=== PATIENT | female | born 1945 | race Caucasian/White ===

== ENCOUNTER → 2016-08-19 | Outpatient (CLI) | payer OTHER, MEDICARE | LOC: CIMAGING 14:55 | PROVIDERS: ATTEND Obstetrics & Gynecology | DX: R10.30 Lower abdominal pain, unspecified (principal); Z78.0 Asymptomatic menopausal state; Z90.710 Acquired absence of both cervix and uterus | CPT/HCPCS: 76856-PO ==

== ENCOUNTER → 2016-08-21 | Outpatient (CLI) | payer OTHER, MEDICARE | LOC: FIMAGING 11:02 | PROVIDERS: ATTEND Obstetrics & Gynecology | DX: Z12.31 Encounter for screening mammogram for malignant neoplasm of breast (principal) | CPT/HCPCS: G0202 ==

== ENCOUNTER → 2016-08-27 | Outpatient (CLI) | payer OTHER, MEDICARE | LOC: FIMAGING 12:40 | PROVIDERS: ATTEND Obstetrics & Gynecology | DX: R92.8 Other abnormal and inconclusive findings on diagnostic imaging of breast (principal) | CPT/HCPCS: 76641; G0204 ==

== ENCOUNTER → 2016-10-15 | Outpatient (CLI) | payer OTHER, MEDICARE | LOC: FIMAGING 18:50 | PROVIDERS: ATTEND Family Medicine | DX: G31.9 Degenerative disease of nervous system, unspecified (principal) ==

== ENCOUNTER → 2016-10-28 | Outpatient (CLI) | payer OTHER, MEDICARE | LOC: FCPNEURO 21:00 | PROVIDERS: ATTEND Student in an Organized Health Care Education/Training Program | DX: G47.33 Obstructive sleep apnea (adult) (pediatric) (principal) ==

== ENCOUNTER → 2016-11-06 | Outpatient (CLI) | payer OTHER, MEDICARE | LOC: FCPNEURO 21:30 | PROVIDERS: ATTEND Psychiatry & Neurology Sleep Medicine | DX: G47.33 Obstructive sleep apnea (adult) (pediatric) (principal) ==

== ENCOUNTER → 2016-12-22 | Outpatient (CLI) | payer OTHER, MEDICARE | LOC: FIMAGING 09:30 | PROVIDERS: ATTEND Nurse Practitioner | DX: M54.5 Low back pain (principal); M54.6 Pain in thoracic spine; M43.06 Spondylolysis, lumbar region; R93.7 Abnormal findings on diagnostic imaging of other parts of musculoskeletal system ==

== ENCOUNTER → 2017-01-15 | Outpatient (CLI) | payer OTHER, MEDICARE | LOC: CIMAGING 14:56 | DX: M43.16 Spondylolisthesis, lumbar region (principal); M51.36 Other intervertebral disc degeneration, lumbar region; M51.34 Other intervertebral disc degeneration, thoracic region; M48.56XA Collapsed vertebra, not elsewhere classified, lumbar region, initial encounter for fracture; M48.54XA Collapsed vertebra, not elsewhere classified, thoracic region, initial encounter for fracture | CPT/HCPCS: 72070-PO; 72100-PO ==

== ENCOUNTER → 2017-02-07 | Outpatient (CLI) | payer OTHER, MEDICARE | LOC: FIMAGING 13:04 | PROVIDERS: ATTEND Internal Medicine Rheumatology | DX: Z13.820 Encounter for screening for osteoporosis (principal); M81.0 Age-related osteoporosis without current pathological fracture ==

== ENCOUNTER 2017-08-22 19:15 | Observation (INO) | payer OTHER, MEDICARE ==
--- NOTE | 2017-08-22 19:50 | EDPHY ---
H & P Stated Complaint: "i wasn't making sense" was for less than 1 min. Time Seen by Provider: 08/22/17 19:27 HPI/ROS: CHIEF COMPLAINT: Confusion HISTORY OF PRESENT ILLNESS: The patient is a 72-year-old female who is brought to the emergency department by her friend who is concerned about her. Today while they were eating lunch the patient suddenly began rambling about a different topic. They do not described it as word salad. No slurred speech. She was able to find words but just simply began talking about unusual things. Her friend asked her what she was talking about and she was able to self- correct. The patient states that something similar happened to her couple of days ago also while she was on the phone. Her friend states that the episode today episode lasted about a minute or 2 and then the patient seemed better however afterwards she was starting to nod-off while eating. The patient does suffer from narcolepsy and obstructive sleep apnea. She takes Provigil during the day but has not taken it for the last few days. Patient also describes a tendency to occasionally gulp at the air like she is short of breath but she does not feel short of breath. No recent fevers or infections. No trauma. She is concerned about TIA. No headache, no paresthesias or weakness. No dizziness. She is now symptom free. REVIEW OF SYSTEMS: Constitutional: denies: chills, fever, recent illness, recent injury EENTM: denies: blurred vision, double vision, nose congestion Respiratory: denies: cough, shortness of breath Cardiac: denies: chest pain, irregular heart rate, lightheadedness, palpitations Gastrointestinal/Abdominal: denies: abdominal pain, diarrhea, nausea, vomiting, blood streaked stools Genitourinary: denies: dysuria, frequency, hematuria, pain Musculoskeletal: denies: joint pain, muscle pain Skin: denies: lesions, rash, jaundice, bruising Neurological: See HPI denies: headache, numbness, paresthesia, tingling, dizziness, weakness Hematologic/Lymphatic: denies: blood clots, easy bleeding, easy bruising Immunologic/allergic: denies: HIV/AIDS, transplant EXAM: GENERAL: Well-appearing, well-nourished and in no acute distress. HEAD: Atraumatic, normocephalic. EYES: Pupils equal round and reactive to light, extraocular movements intact, sclera anicteric, conjunctiva are normal. ENT: TMs normal, nares patent, oropharynx clear without exudates. Moist mucous membranes. NECK: Normal range of motion, supple without lymphadenopathy or JVD. LUNGS: Breath sounds clear to auscultation bilaterally and equal. No wheezes rales or rhonchi. HEART: Regular rate and rhythm without murmurs, rubs or gallops. ABDOMEN: Soft, nontender, normoactive bowel sounds. No guarding, no rebound. No masses appreciated. BACK: No CVA tenderness, no spinal tenderness, step-offs or deformities EXTREMITIES: Normal range of motion, no pitting or edema. No clubbing or cyanosis. NEUROLOGICAL: Cranial nerves II through XII grossly intact. Normal speech, normal gait. 5/5 strength, normal movement in all extremities, normal sensation PSYCH: Normal mood, normal affect. SKIN: Warm, dry, normal turgor, no visible rashes or lesions. Source: Patient - Personal History Current Tetanus/Diphtheria Vaccine: Unsure Current Tetanus Diphtheria and Acellular Pertussis (TDAP): Unsure - Medical/Surgical History Hx Asthma: Yes Hx Chronic Respiratory Disease: No Hx Diabetes: No Hx Cardiac Disease: No Hx Renal Disease: No Hx Cirrhosis: No Hx Alcoholism: No Hx HIV/AIDS: No Hx Splenectomy or Spleen Trauma: No Other PMH: chronic pain, DDD, HTN, MRI abnormal. osteoporosis. hypothyroid. fibromyalgia - Family History Significant Family History: No pertinent family hx - Social History Smoking Status: Never smoked Alcohol Use: None Constitutional: Initial Vital Signs Temperature (C) 36.9 C 08/22/17 19:18 Heart Rate 82 08/22/17 19:18 Respiratory Rate 16 08/22/17 19:18 Blood Pressure 159/109 H 08/22/17 19:18 O2 Sat (%) 95 08/22/17 19:18 O2 Delivery Mode Room Air Allergies/Adverse Reactions: Sulfa (Sulfonamide Antibiotics) Allergy (Severe, Verified 01/19/15 08:39) Anaphylaxis Home Medications: Medication Instructions Recorded Famotidine [Pepcid 20 MG (*)] 20 mg PO BIDMEAL PRN 08/22/17 Gabapentin [Neurontin 100 MG (*)] 200 mg PO DAILY 08/22/17 Naturethroid 97.5mg Tab 97.5 mg PO DAILY 08/22/17 Omeprazole 20 mg PO DAILY 08/22/17 Orphenadrine Citrate [Norflex 100 100 mg PO BID PRN 08/22/17 mg (*)] Tapentadol HCl [Nucynta 50 MG (*)] 50 mg PO Q6H PRN 08/22/17 Tapentadol HCl [Nucynta ER] 200 mg PO BID@,18 08/22/17 celeCOXIB [Celebrex (*)] 200 mg PO DAILY PRN 08/22/17 Acetaminophen [Tylenol 325mg (*)] 650 mg PO Q4HRS PRN tab 08/23/17 Aspirin [Aspirin 81mg (*)] 81 mg PO DAILY tab.chew 08/23/17 Atorvastatin Calcium [Lipitor 20 20 mg PO DAILY #30 tab 08/23/17 mg (*)] Difluprednate [Durezol] 1 drop RTEYE DAILY 08/23/17 Lifitegrast [Xiidra] 1 drop EACHEYE BID 08/23/17 Medical Decision Making ED Course/Re-evaluation: 8:30 p.m. I discussed the case with Dr. Paz who will admit to the medical service for what could be be crescendo like TIAs. Differential Diagnosis: Partial list of the Differential diagnosis considered include but were not limited to; TIA, electrolyte abnormality and although unlikely based on the history and physical exam, I also considered acute coronary disease, arrhythmia. - Data Points Laboratory Results: Laboratory Results 08/22/17 20:09 08/22/17 20:09 Medications Given: Discontinued Medications Aspirin (Aspirin) 81 mg PO DAILY [facility] Stop: 02/19/18 08:59 Last Admin: 08/23/17 09:19 Dose: 81 mg Gabapentin (Neurontin) 200 mg PO DAILY [facility] Stop: 02/19/18 08:59 Last Admin: 08/23/17 09:19 Dose: 200 mg Hydralazine HCl (Apresoline) 10 mg PO Q4H PRN PRN Reason: SBP Greater Than Stop: 02/18/18 23:44 Last Admin: 08/22/17 23:42 Dose: 10 mg Sodium Chloride (Ns) 1,000 mls @ 75 mls/hr IV CONT [facility] Stop: 02/18/18 22:59 Last Admin: 08/22/17 23:39 Dose: 1,000 mls Miscellaneous Medication (Naturethroid 97.5mg Tab) 97.5 mg PO DAILY [facility] Stop: 02/19/18 08:59 Last Admin: 08/23/17 09:14 Dose: 1 tab Miscellaneous Medication (Tapentadol Hcl [Nucynta Er]) 200 mg PO BID@ [facility] Stop: 02/19/18 05:59 Last Admin: 08/23/17 06:34 Dose: 200 mg Miscellaneous Medication (Lifitegrast [Xiidra]) 1 drop EACHEYE BID [facility] Stop: 02/19/18 08:59 Last Admin: 08/23/17 09:14 Dose: 1 drop Miscellaneous Medication (Difluprednate [Durezol]) 1 drop RTEYE DAILY [facility] Stop: 02/19/18 08:59 Last Admin: 08/23/17 09:15 Dose: 1 drop Pantoprazole Sodium (Protonix) 40 mg PO DAILY [facility] Stop: 02/19/18 08:59 Last Admin: 08/23/17 09:19 Dose: 40 mg Tapentadol (Nucynta) 50 - 100 mg PO Q6HRS PRN PRN Reason: Pain, Breakthrough Stop: 09/01/17 23:19 Last Admin: 08/23/17 12:36 Dose: 50 mg Departure - Departure Disposition: [facility] Acute Clinical Impression: Transient cerebral ischemia Qualifiers: Transient cerebral ischemia type: unspecified Qualified Code(s): G45.9 - Transient cerebral ischemic attack, unspecified Condition: Fair
[2017-08-22 20:25] LABS: PLATELET COUNT 235 10^3/uL (150-400)
[2017-08-22] MEDS ORDERED: ONDANSETRON 4 MG/2 ML VIAL IVP PRN (20:28)
[2017-08-22] MEDS ORDERED: ACETAMINOPHEN 325 MG TAB PO PRN (20:28)
[2017-08-22] MEDS ORDERED: LABETALOL HCL 5 MG/ML 20 ML MDV IVP PRN (20:28)
[2017-08-22] MEDS ORDERED: ONDANSETRON DISINTEGRATING 4 MG TAB PO PRN (20:28)
[2017-08-22 20:34] LABS: INR 0.92 (0.83-1.16); PROTIME(PATIENT) 12.6 SEC (12.0-15.0)
[2017-08-22] MEDS ORDERED: NS 1,000 ML IV SCH (23:00)
[2017-08-22] MEDS: TAPENTADOL HCL 50 MG TAB PO PRN (23:31)
[2017-08-22] MEDS ORDERED: hydrALAZINE 10 MG TAB PO PRN (23:31)
[2017-08-22] MEDS ORDERED: FAMOTIDINE 20 MG TAB PO PRN (23:39)
[2017-08-22] MEDS ORDERED: ORPHENADRINE CITRATE 100 MG EXT REL TAB PO PRN (23:39)
--- NOTE | 2017-08-23 00:21 | PDGENHP ---
History and Physical - Chief Complaint Confusion - History of Present Illness Source-patient provides history appears reliable. EMR was reviewed and case discussed with accepting hospitalist. HPI-this is a pleasant 72-year-old female with past medical history significant for degenerative disc disease with chronic pain on chronic narcotic therapy, HTN , hypothyroidism, osteoporosis, fibromyalgia, STERLING, narcolepsy, mitral valve prolapse who presents emergency department today with complaints of some confusion and rambling speech. Patient reports that she was at lunch with a friend when in the midst of the conversation reply with a completely off topic response. Patient states she was made aware of on this during conversation with her friend. She also notes that she was feeling a little bit of foggy thinking. She denies any drooling or report of facial drooping. She denies any headache numbness tingling no focal deficits at all. Patient states that she had a similar episode a few weeks ago on again she was on the phone with a friend and her responses became completely off topic. Patient denies that she felt any increase in somnolence as she does also have a history of STERLING and narcolepsy however ED report notes that friend was concerned that she was increasingly somnolent during the daytime. Patient denies any recent fevers, chills, nausea/vomiting, dysuria or other infectious symptoms. She denies any focal deficits she. She does have a chronic low back pain with some lower extremity pain and weakness. She does report some cramping today. Patient has not had any significant change in appetite but she notes she is not on maintained best on oral hydration. History Information - Allergies/Home Medication List Allergies/Adverse Reactions: Sulfa (Sulfonamide Antibiotics) Allergy (Severe, Verified 01/19/15 08:39) Anaphylaxis Home Medications: Famotidine [Pepcid 20 MG (*)] 20 mg PO BIDMEAL PRN 08/22/17 [Last Taken Unknown] Gabapentin [Neurontin 100 MG (*)] 200 mg PO DAILY 08/22/17 [Last Taken 08/22/17] Naturethroid 97.5mg Tab 97.5 mg PO DAILY 08/22/17 [Last Taken 08/22/17] Omeprazole 20 mg PO DAILY 08/22/17 [Last Taken 08/22/17] Orphenadrine Citrate [Norflex 100 mg (*)] 100 mg PO BID PRN 08/22/17 [Last Taken Unknown] Tapentadol HCl [Nucynta 50 MG (*)] 50 mg PO Q6H PRN 08/22/17 [Last Taken ] Tapentadol HCl [Nucynta ER] 200 mg PO BID@08/22/17 [Last Taken 08/22/17] celeCOXIB [Celebrex (*)] 200 mg PO DAILY PRN 08/22/17 [Last Taken Unknown] I have personally reviewed and updated: family history, medical history, social history, surgical history - Past Medical History degenerative disc disease, hypertension (Patient reports she is only on p.r.n. Meds at home.) Additional medical history: Chronic pain on chronic narcotic therapy of Nucynta long and short-acting. Hypothyroidism. Osteoporosis. Fibromyalgia. Mitral valve prolapse - Surgical History Additional surgical history: Bladder sling/mesh - Family History Additional family history: Mother and father- HTN, HLD, CAD with CO age 70s - Social History Smoking Status: Never smoked Alcohol Use: None Drug Use: None Additional social history: Patient lives alone. She is DNR DNI. Review of Systems Review of Systems: ROS: 10pt was reviewed & negative except for what was stated in HPI & below Constitutional: Reports: no symptoms. Denies: chills, fever EENMT: Reports: no symptoms. Denies: blurred vision, nose congestion, sore throat Cardiac: Reports: no symptoms. Denies: edema, palpitations, syncope Respiratory: Reports: shortness of breath (Patient reports occasional episodes of sudden onset shortness of breath that is resolved after a gasp.). Denies: cough, orthopnea Gastrointestinal: Reports: no symptoms Genitourinary: Reports: other (Patient reports occasional retention symptoms.). Denies: dysuria, frequency, hematuria Muscolosketal: Reports: back pain, muscle pain, other (Patient with chronic diffuse back pain and myalgias related to fibromyalgia.) Skin: Reports: no symptoms, change in color. Denies: rash Neurological: Reports: no symptoms. Denies: emotional problems, numbness, tingling, weakness (No focal weakness reported.) Hematologic/Lymphatic: Reports: no symptoms Physical Exam Physical Exam: Selected Entries 08/22/17 08/22/17 08/22/17 19:18 21:09 22:19 Blood Pressure Automatic Automatic Method Heart Rate 82 74 62 Respiratory 16 16 18 Rate O2 Sat (%) 95 97 96 Temperature (C) 36.9 C 36.5 C Blood Pressure 159/109 H 192/115 H 191/106 H Mean Arterial 125 H 140 H 134 H Pressure (MAP) Activity During At Rest Vital Signs O2 Delivery Room Air Room Air Mode Temperature Oral Oral Source Heart Rate Heart Rate/ Source Monitor Temp Pulse Resp BP Pulse Ox 36.4 C 67 20 207/107 H 96 08/23/17 00:00 08/23/17 00:00 08/23/17 00:00 08/23/17 00:00 08/23/17 00:00 Constitutional: no apparent distress, uncomfortable (With movement), other ( NAD. Pleasant adult female is lying quietly in bed. She is resting in asleep when I enter the room wakes easily to name.) Eyes: PERRL (Decreased reactivity to light bilaterally but symmetric.), EOMI, No scleral injection Ears, Nose, Mouth, Throat: no oral mucosal ulcers, dry mucous membranes ( Slightly dry. ), other (No nasal discharge.), No poor dentition Cardiovascular: regular rate and rhythym, no murmur, rub, or gallop ( no murmur appreciated.), pulses symmetric bilaterally, edema Peripheral Pulses: 1+: dorsalis-pedis (R), dorsalis-pedis (L) Respiratory: no respiratory distress, no rales or rhonchi, clear to auscultation , reduced air movement (Decreased inspiratory effort bilaterally.) Gastrointestinal: normoactive bowel sounds, soft, non-tender abdomen, no palpable masses, No tenderness, No distension Genitourinary: no bladder fullness, no bladder tenderness, No hernandez in urethra Skin: warm, normal color, no rashes or abrasions, other (Pallor) Musculoskeletal: other (5/5 strength upper extremities. 4/5 strength bilateral lower extremities with complaints of lower back pain with leg raises.) Neurologic: AAOx3, sensation intact bilaterally, CN II-XII Intact, other ( Nonfocal exam. Patient with some lower extremity weakness related to her back pain and leg cramping.), No facial droop Psychiatric: interacting appropriately, thought process linear, anxious, No encephalopathic, No depressed, No flat affect, No suicidal ideation, No agitated , No poor insight, No poor judgement, No poor memory Lab Data & Imaging Review 08/22/17 20:09 08/22/17 20:09 WBC 5.63 10^3/uL (3.80-9.50) 08/22/17 20:09 RBC 4.51 10^6/uL (4.18-5.33) 08/22/17 20:09 Hgb 13.3 g/dL (12.6-16.3) 08/22/17 20:09 Hct 40.1 % (38.0-47.0) 08/22/17 20:09 MCV 88.9 fL (81.5-99.8) 08/22/17 20:09 MCH 29.5 pg (27.9-34.1) 08/22/17 20:09 MCHC 33.2 g/dL (32.4-36.7) 08/22/17 20:09 RDW 13.9 % (11.5-15.2) 08/22/17 20:09 Plt Count 235 10^3/uL (150-400) 08/22/17 20:09 MPV 11.0 fL (8.7-11.7) 08/22/17 20:09 Neut % (Auto) 61.0 % (39.3-74.2) 08/22/17 20:09 Lymph % (Auto) 31.4 % (15.0-45.0) 08/22/17 20:09 Blount % (Auto) 6.7 % (4.5-13.0) 08/22/17 20:09 Eos % (Auto) 0.0 % (0.6-7.6) L 08/22/17 20:09 Baso % (Auto) 0.5 % (0.3-1.7) 08/22/17 20:09 Nucleat RBC Rel Count 0.0 % (0.0-0.2) 08/22/17 20:09 Absolute Neuts (auto) 3.43 10^3/uL (1.70-6.50) 08/22/17 20:09 Absolute Lymphs (auto) 1.77 10^3/uL (1.00-3.00) 08/22/17 20:09 Absolute Monos (auto) 0.38 10^3/uL (0.30-0.80) 08/22/17 20:09 Absolute Eos (auto) 0.00 10^3/uL (0.03-0.40) L 08/22/17 20:09 Absolute Basos (auto) 0.03 10^3/uL (0.02-0.10) 08/22/17 20:09 Absolute Nucleated RBC 0.00 10^3/uL (0-0.01) 08/22/17 20:09 Immature Gran % 0.4 % (0.0-1.1) 08/22/17 20:09 Immature Gran # 0.02 10^3/uL (0.00-0.10) 08/22/17 20:09 PT 12.6 SEC (12.0-15.0) 08/22/17 20:09 INR 0.92 (0.83-1.16) 08/22/17 20:09 Sodium 136 mEq/L (135-145) 08/22/17 20:09 Potassium 4.1 mEq/L (3.3-5.0) 08/22/17 20:09 Chloride 105 mEq/L (97-110) 08/22/17 20:09 Carbon Dioxide 26 mEq/l (22-31) 08/22/17 20:09 Anion Gap 5 mEq/L (8-16) L 08/22/17 20:09 BUN 29 mg/dL (7-23) H 08/22/17 20:09 Creatinine 1.0 mg/dL (0.6-1.0) 08/22/17 20:09 Estimated GFR 55 08/22/17 20:09 Glucose 97 mg/dL (70-100) 08/22/17 20:09 Calcium 9.5 mg/dL (8.5-10.4) 08/22/17 20:09 Urine Color YELLOW 08/22/17 22:40 Urine Appearance CLEAR 08/22/17 22:40 Urine pH 6.0 (5.0-7.5) 08/22/17 22:40 Ur Specific [place] 1.012 (1.002-1.030) 08/22/17 22:40 Urine Protein NEGATIVE (NEGATIVE) 08/22/17 22:40 Urine Ketones NEGATIVE (NEGATIVE) 08/22/17 22:40 Urine Blood NEGATIVE (NEGATIVE) 08/22/17 22:40 Urine Nitrate NEGATIVE (NEGATIVE) 08/22/17 22:40 Urine Bilirubin NEGATIVE (NEGATIVE) 08/22/17 22:40 Urine Urobilinogen NEGATIVE EU (0.2-1.0) 08/22/17 22:40 Ur Leukocyte Esterase NEGATIVE (NEGATIVE) 08/22/17 22:40 Urine RBC 1-3 /hpf (0-3) 08/22/17 22:40 Urine WBC 1-3 /hpf (0-3) 08/22/17 22:40 Ur Epithelial Cells TRACE /lpf (NONE-1+) 08/22/17 22:40 Urine Glucose NEGATIVE (NEGATIVE) 08/22/17 22:40 Imaging Review: CT Head Without Contrast, 7:53 PM History: Confusion, nonsensical speech, hypertension. Technique: Noncontrast images through the head. Soft tissue and bone window evaluation is performed. Dose reduction techniques were utilized. Comparison: 12/03/2010, brain MRI October 15, 2016 Findings: Ventricular size and sulcal prominence are stable since 2010. There is no evidence for hemorrhage, mass lesion, acute infarction, intracranial edema, hydrocephalus or abnormal intracranial calcification. No subarachnoid blood is identified. There is no midline shift. The ambient cistern is patent. Bone window evaluation reveals normally aerated paranasal and mastoid sinuses. There is no evidence of pneumocephalus. 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 Impression: Stable cerebral atrophy since 2010. EKG additional interpertation: Ordered and pending. Assessment & Plan Assessment: 72-year-old female who presents several hours after onset of some confusion and expressive changes. #Confusion - patient reports that she was not aware of her inappropriate flow of conversation with her friend earlier until it was pointed out to her. It was also noted in the ED provider notes that patient did appear to be low bit more somnolent during the daytime. She denies any episodes of narcolepsy recently. She is recommended to wear CPAP at for her a central and obstructive sleep apnea however has caused some discomfort regarding her eustachian tubes and so she has not been doing this at this time. Patient also reports that she has not been taking her pro visual recently. She denies any increase in fatigue or somnolence recently. Patient is quite concerned and anxious regarding her narcotics and the schedule. She does have of mild AK I as well as elevated BUN concerning for some dehydration and prerenal injury. She is currently on long-acting and short-acting Nucynta, p.r.n. Nor flex as well as gabapentin all of which could be the contributing to increased somnolence and some changes in her mentation. TIA is also on the differential however patient has not had any other associated neurologic findings. CT head was negative for any acute changes she did does show stable cerebral atrophy. EKG was not obtained in the emergency department but patient has been on tele normal sinus rhythm currently in the rate of the 60s. There have been no observe a shins of a arrhythmias. Patient does report a history of mitral valve prolapse. Echo with bubble as been ordered as well as bilateral carotid Doppler and an EKG. Neurology consultation has been requested given multiple episodes. Patient reports that she does take 81 mg aspirin only intermittently and is not quite consistent. Patient has been admitted to the neuro floor with serial neuro checks and stroke protocol. I also discussed with the patient of proceeding with IV fluid hydration and repeating BMP as was holding her long- acting Nucynta in the setting of some mild renal insufficiency. Patient is amenable to increasing her short-acting dose but is quite anxious and concerned regarding falling off her schedule of her long-acting as well as short-acting medications per usual. # AK I- patient's GFR just slightly below her apparent baseline based on available labs which appears to be just at 0.9 creatinine and a GFR greater than 60. She is currently a GFR in the 50s will give her IV fluid hydration as tolerated also encourage oral intake as well. I discussed again with the patient holding off on her long-acting doses and possibly a renal adjustments pending up morning BMP after some hydration. UA is pending. #benign essential HTN - patient reports that her blood pressures are generally well controlled she does however report that she uses a p.r.n. If her blood pressures are occasionally elevated. At this time patient is concerned as her blood pressures are notably more elevated than normal. She does appear a little bit anxious on particularly with regard to concerns of being off her schedule on her narcotic therapy. She may also require on some daily treatment for her HTN. She does have a history of hypothyroidism and her medication was recently adjusted down so will on check TFTs to see if this could also be contributing at this time. chronic medical issues #Hypothyroidism - TFTs as noted above. Continue her home with thyroid supplementation. #Degenerative disc disease and chronic pain - plan as noted above will hold her ER dosing of Nucynta overnight while she is being hydrated and will continue with IR dosing. #Mitral valve prolapse - echo with bubbles ordered as part of bundle studies as noted above in# 1. # STERLING on CPAP - patient currently has not been utilizing for the last several weeks to months due to left eustachian tube dysfunction. O2 at HS p.r.n. #osteoporosis - patient's chart lists Prolia for treatment. # fibromyalgia-resume home medications as noted above. FEN - IV fluids overnight while patient is resting. Will encourage oral hydration as well. Electrolyte monitoring replacement if needed. Diet as tolerated after patient passes s bedside wallow eval. PPX-SCDs. Holding an anticoagulation at this time pending Neurology recommendations and also anticipating short hospital stay Cor status-DNR DNI Disposition-patient admitted observation status on the neuro floor for close neurologic management and assessments. Anticipate less than 2 midnight stay pending above studies.
[2017-08-23] MEDS ORDERED: TAPENTADOL HCL 200 MG PO SCH (06:00)
[2017-08-23] MEDS: TAPENTADOL HCL 50 MG TAB PO PRN ×2 (06:33→12:36)
[2017-08-23] MEDS ORDERED: EYE RTEYE SCH (09:00)
[2017-08-23] MEDS ORDERED: ASPIRIN 81 MG CHEWABLE TAB PO SCH (09:00)
[2017-08-23] MEDS ORDERED: THYROID 97.5 MG PO SCH (09:00)
[2017-08-23] MEDS ORDERED: DIFLUPREDNATE RTEYE SCH (09:00)
[2017-08-23] MEDS ORDERED: DIFLUPREDNATE 0.05% RTEYE SCH (09:00)
[2017-08-23] MEDS ORDERED: PANTOPRAZOLE SODIUM 40 MG TAB PO SCH (09:00)
[2017-08-23] MEDS ORDERED: GABAPENTIN 100 MG CAP PO SCH (09:00)
--- NOTE | 2017-08-23 11:40 | ECHO ---
[email or web address] [address] [address] Main: [phone] Fax: Transthoracic Echocardiogram Name: YOBANI BEAN MR#: [id number] Study Date: 08/23/2017 Study Time: 10:52 AM Date of : 1945 Age: 72 year(s) Height: 167.6 cm (66 in.) Weight: 58.97 kg (130 lb.) BSA: 1.67 m2 Gender: Female Examination: Echo Indication: tia Image Quality: Contrast: Requested by: Fátima Mora BP: 167 mmHg/97 mmHg Heart Rate: Rhythm: Indication: tia Procedure [employer] Crewmember: Nancy Gongora [facility] Reading Physician: Leland Alcala MD Requesting Provider: Conclusions: Normal size left ventricle. Normal global systolic LV function. EF is 68 %. No regional wall motion abnormality. Grade 1 diastolic dysfunction (abnormal relaxation). Sigmoid septum noted without LVOT obstruction. No bubble study could be performed due to no IV. IAS appears initact by color flow. Mild mitral annular calcification. Trivial to mild mitral regurgitation. Trivial to mild tricuspid valve regurgitation. Right ventricular systolic pressure measures 21mmHg. Measurements: Chambers Valvular Assessment AV/MV Valvular Assessment TV/PV Normal Normal Normal Name Value Range Name Value Range Name Value Range Ao Lisa (MM): 3.6 cm (2.2 cm-3.7 AV Vmax: 0.99 m/s (1 m/s-1.7 TR Vmax: 2.00 mm/s ( - ) cm) m/s) TR PGmax: 16 mmHg ( - ) IVSd (2D): 1.4 cm (0.6 cm-1.1 AV maxP mmHg ( - ) syst. PAP: 21 mmHg ( - ) cm) LVOT Vmax: 0.82 m/s (0.7 m/s-1.1 PV Vmax: 0.62 m/s (0.6 m/s-0.9 LVDd (2D): 2.7 cm (3.9 cm-5.3 m/s) m/s) cm) MV E Vmax: 0.66 m/s ( - ) PV PGmax: 2 mmHg ( - ) LVDs (2D): 1.9 cm (2.1 cm-4 MV A Vmax: 1.11 m/s ( - ) cm) MV E/A: 0.59 ( - ) LVPWd (2D): 0.9 cm ( - ) LVEF (BP): 68 % (>=55 %) RVDd(2D): 2.6 cm (1.9 cm-3.8 cmmm) Continued Measurements: Patient: YOBANI BEAN Study Date: 08/23/2017 Page 1 of 2 10:52 AM Chambers Valvular Assessment AV/MV Valvular Assessment TV/PV Name Value Name Value Name Value LADs Lon.2 cm MV DecTime: 338 m/s CVP (est.): 5 mmHg LA Area: 16.5 cm2 MV E' Septal: 0.04 m/s LA Volume: 35 ml MV E/E' Septal: 14.60 LA Volume Index: 21.0 ml/m2 MV E/E' Lateral: 11.00 Additional Vessels Name Value Ao Ascendin.2 cm Findings: Left Ventricle: Normal size left ventricle. Normal global systolic LV function. EF is 68 %. No regional wall motion abnormality. Grade 1 diastolic dysfunction (abnormal relaxation). Sigmoid septum noted without LVOT obstruction. Right Ventricle: Grossly normal RV size and function.. Left Atrium: The left atrium is normal in size. No bubble study could be performed due to no IV. IAS appears initact by color flow. Right Atrium: The right atrium is normal in size. Mitral Valve: The mitral valve is normal in appearance and function. Mild mitral annular calcification. Trivial to mild mitral regurgitation. No mitral stenosis is present. Aortic Valve: The aortic valve is normal in appearance and function. There is no aortic valve regurgitation. No aortic valve stenosis is present. Tricuspid Valve: The tricuspid valve is normal in appearance and function. Trivial to mild tricuspid valve regurgitation. Right ventricular systolic pressure measures 21mmHg. The pulmonary artery pressure is normal. Pulmonic Valve: The pulmonic valve is normal in appearance and function. Trivial to mild pulmonic valve regurgitation. Aorta: The aorta is normal. Normal size aortic root measuring 3.6 cm. Normal size ascending aorta measuring 3.2 cm. IVC: The IVC is normal sized. Pericardium: No pericardial effusion. (No Signature Object) Patient: YOBANI BEAN Study Date: 08/23/2017 Page 2 of 2 10:52 AM [id number]
[2017-08-23 11:49] VITALS: BP 174/99
--- NOTE | 2017-08-23 12:44 | HOSPPROG ---
Hospitalist Progress Note Assessment/Plan: 72-year-old female who presents several hours after onset of some confusion and expressive changes. Today is my first encounter w the patient, chart reviewed. *confusion, neurologic symptoms "micro sleep event" -poss from narcotic use -has a very high TSH -hx of MVP -neurology to see -has hx of narcolepsy -carotid studies show no flow limiting stenosis -met with the patient w Dr Greenwood, reviewed previous MRI's -has microvascular disease -family hx of Parkinson's -suspect her confusion is r/t sleep episodes, multiple things impacting this which include a high TSH, Narcolepsy, pain medications *HLD -statin *FABIO *hypothyroidism -TSH is 186 -on Nature thyroid -had hyperthyroidism as a child which was treated w iodine -she said her levels of TSH have been difficult to manage *STERLING -CPAP (she hasn't' been using recently due to left eustachian tube dysfunction) #benign essential HTN *fibromyalgia #chronic back pain on chronic, continuous opiates -has tried to wean herself but pain was too high #plan; dc home-start aspirin therapy and statin therapy, get another TSH and see Dr Munoz . Subjective: Delmi is very anxious about her symtoms. Objective: Vital Signs Temp Pulse Resp BP Pulse Ox 36.9 C 80 16 174/99 H 96 08/23/17 07:31 08/23/17 11:43 08/23/17 11:43 08/23/17 11:43 08/23/17 11:43 Laboratory Results 08/23/17 06:10 08/22/17 08/23/17 08/24/17 05:59 05:59 05:59 Output Total 1400 Balance -1400 PT 12.6 SEC (12.0-15.0) 08/22/17 20:09 INR 0.92 (0.83-1.16) 08/22/17 20:09 - Physical Exam Constitutional: no apparent distress, appears nourished, not in pain Eyes: PERRL Ears, Nose, Mouth, Throat: hearing normal Cardiovascular: regular rate and rhythym, no murmur, rub, or gallop Respiratory: no respiratory distress Gastrointestinal: normoactive bowel sounds Skin: normal color Musculoskeletal: full muscle strength Neurologic: AAOx3, CN II-XII Intact, No sensation intact bilaterally, No numbness, No pronator drift, No facial droop Psychiatric: interacting appropriately, not encephalopathic ICD10 Worksheet Patient Problems: Problems Problem Status Onset Transient cerebral ischemia Acute
--- NOTE | 2017-08-23 14:42 | ASMTCMCOM ---
CM Note CM Note Notes: Discussed case w/Hospitalist and reveiewed therapy recommendations.Pt will dc home today with no CM needs. Date Signed: 08/23/2017 02:41 PM Electronically Signed By:Ruby Caballero RN
--- NOTE | 2017-08-23 15:42 | GCON ---
[f rep st] CONSULTATION NEUROLOGY CONSULT REFERRING PHYSICIAN: Marion Paz MD CHIEF COMPLAINT: Transient neurologic symptoms. HISTORY OF PRESENT ILLNESS: The patient is a very pleasant 72-year-old lady with a diagnosis of chronic pain and on chronic opiate pain medications. In the last year, she was diagnosed simultaneously with obstructive sleep apnea, on BiPAP, and narcolepsy apparently and put on p.r.n. stimulants. She also has a history of thyroid disease, and her current TSH is 186, and free T4 and total T3 are both low. Again, in the context of all of the above medical problems, she has had 2 episodes of very brief neurologic symptoms. Specifically, a couple nights ago while talking to a friend she felt herself fall asleep briefly and changed subjects in the conversation. However, there was no actual aphasia or dysarthria. No focal motor or sensory symptoms. She herself acknowledges she likely became briefly drowsy. She then was at a [employer] restaurant having lunch with her friend yesterday. They were having lunch and having a conversation. The patient's friend then noticed her suddenly have flexion in her neck as if she was falling asleep. The patient does not specifically recall this but is lucid to tell us that her friend firmly saw the patient appear to fall asleep behaviorally. She then again switched the topic of the conversation in a tangential fashion without any reported aphasia or dysarthria. There were no focal motor symptoms or sensory symptoms. No convulsive activity. She denies having any dream imagery. She was admitted for further evaluation. Head CT showed changes consistent with age, and carotid Doppler showed no significant stenosis. Echocardiogram showed no obvious intracardiac thrombus. I am not aware of any atrial fibrillation so far in this hospitalization. We did review previous MRIs as well. She has age-related microvascular changes and atrophy which have increased between the 2 studies which were 4 years apart. These were not unusual for age. She also has untreated dyslipidemia, which may be contributing to microvascular changes. She also has a family history of Parkinson disease, and she describes some dream -enactment behavior. She is seeing a sleep specialist for this. REVIEW OF SYSTEMS: 10-point review of systems per the H and P of Dr. Mora. For past medical history, social history, family history, allergies, home medications, please refer to Dr. Mora's note. PHYSICAL EXAM: VITAL SIGNS: Blood pressure has been somewhat elevated; 130s to 160s over 80s. She is afebrile at 36.6 centigrade. Heart rate 60s, respiration 18. GENERAL: The patient is awake and alert. In no acute distress. NEUROLOGIC: On the higher mental function, she can name 3/3, follow commands 3/3, and repeat 3/3. No aphasia. Cranial nerves: Facial strength and sensation are intact. Extraocular movements are normal and full. There is no dysarthria. On motor, she has no focal weakness. She has normal tone. There is no rigidity. Coordination: The patient has normal [id number] in terms of accuracy. She does have a fine essential tremor. There is no parkinsonian-type, pill-rolling tremor present on exam today. IMPRESSION AND PLAN: 1. Transient neurologic symptoms, resolved. Overall, her history best fits with a brief sleep attack / microsleep-type event. She was counseled at length. The clinical history does not strongly suggest transient ischemic attack / acute neurovascular syndrome. The sleep attack is occurring in the context of opiate pain medication, sleep-disordered breathing, query narcolepsy and significant thyroid derangement/hypothyroidism. We discussed that all of these factors in combination certainly could increase her propensity to fatigue, sleepiness, and sleep attacks. Going forward, I recommend daily statin therapy and a baby aspirin for general vascular prophylaxis based on the microvascular changes on her brain MRI and lipid panel. We discussed risks, benefits and alternatives for both aspirin and statin therapies. She is agreeable. In addition, we strongly recommended followup with Endocrinology regarding her thyroid derangement. She is agreeable as well. Regarding her family history of Parkinson disease, we discussed that certainly she may have some precursor to am alpha-synucleinopathy with her dream-enacting behavior in tandem with her family history. However, at her age, there is no parkinsonism now, which is reassuring. If she were to develop any parkinsonian symptoms, she will follow up with Neurology. She will follow up with her sleep physician, outpatient primary care and endocrinology regarding all of the above as well. No further recommendations. She will likely discharge home today. We will sign off and follow up as needed. Please do not hesitate to call if there are any questions or changes in neurologic status of this patient. Seventy total minutes floor time today reviewing records in detail including past imaging and current imaging, coordination of care, and direct counseling with the patient. /[id number]/MODL MTDD
--- NOTE | 2017-08-23 16:03 | GDS ---
[f rep st] DISCHARGE SUMMARY DISCHARGE DIAGNOSES: 1. Neurologic symptoms with episodes of confusion. 2. Hyperlipidemia. 3. Acute kidney injury. 4. Hypothyroidism. 5. Obstructive sleep apnea. 6. Hypertension. 7. Fibromyalgia. 8. Chronic pain, on chronic continuous opiates. CONSULTATION: Dr. Luis Enrique Greenwood HISTORY: Briefly, Delmi See is a 72-year-old woman with a history of narcolepsy, degenerative disk disease, hypertension, hypothyroidism, who presented to the emergency room with complaints and confusion and rambling speech. She was at lunch with a friend when in the midst of conversation she completely went off topic and felt foggy. She has had multiple episodes of this over the last several days. She was seen and evaluated by Dr. Greenwood with Neurology and myself. It is most likely that she is having micro sleep events complicated by her elevated thyroid, history of narcolepsy, as well as being on pain medications. She will be discharged home today and further follow up with her primary care provider as well as an engineering program analyst. HOSPITAL COURSE PER PROBLEM: 1. Confusion with neurologic symptoms. Dr. Greenwood believes that she had a micro sleep event. This is likely multifactorial with her underlying narcolepsy. Also her TSH is 186. This needs to be addressed with her doctor. If she has any type of stroke-like symptoms, recommendation is to return to the emergency room. 2. Hyperlipidemia. Dr. Greenwood reviewed with her the previous MRIs. Recommendation was she has ongoing microvascular disease, recommending statin therapy as well as aspirin. 3. Acute kidney injury, stable. 4. Hypothyroidism. Her TSH is 186. She said she had hyperthyroidism as a child and was treated with iodine. I have offered to place her on Synthroid. She takes a natural supplement. She will follow up with Dr. Tavera. Recommended she get this addressed sooner than later. 5. Sleep apnea. She has been on CPAP but has not been using this due to left eustachian tube dysfunction. Dr. Greenwood recommended that she follow up with her sleep doctor to adjust the pressures of her CPAP. 6. Hypertension, not on treatment. 7. Fibromyalgia, ongoing. 8. Chronic back pain, on continuous chronic opiates. She said she has tried to get off the medications, but her pain got out of control. DISCHARGE CONDITION: Stable blood. Blood pressure was elevated at discharge at 174/99, heart rate 80, respiratory rate 18, O2 saturations on room air 96%, temperature 36.9 Celsius. MEDICATIONS AT DISCHARGE: Please see the EMR. DISCHARGE INSTRUCTIONS: 1. I recommend she get on aspirin therapy as well as statin therapy. I recommended she follow up with her primary care provider in regard to her hypertension. 2. Her TSH is extremely high. This needs to be addressed sooner than later. I gave her Dr. Tavera's phone number. 3. If she develops fever, chills, worsening neurologic symptoms, to return to the ER. Copy requested to: Dr. Tavera [employer] /[id number]/MODL MTDD
== END 2017-08-23 15:35 | disposition home or self-care (01) ==
LOC: F3N 21:30
PROVIDERS: ADMIT Internal Medicine; ATTEND Internal Medicine
DX: R29.818 Other symptoms and signs involving the nervous system (principal); R41.0 Disorientation, unspecified; E78.5 Hyperlipidemia, unspecified; N17.9 Acute kidney failure, unspecified; E03.9 Hypothyroidism, unspecified; G47.33 Obstructive sleep apnea (adult) (pediatric); I10 Essential (primary) hypertension; M79.7 Fibromyalgia; G89.29 Other chronic pain; Z79.891 Long term (current) use of opiate analgesic
CPT/HCPCS: 70450; 92610; 93306; 93880; 97161; 97165; G0378; G8978; G8979; G8980; G8987; G8988; G8989; G8996; G8997; G8998; 84480-90; G8981-GP-CH

== ENCOUNTER → 2018-07-21 | Outpatient (CLI) | payer OTHER, MEDICARE | LOC: EMCIMAGING 13:11 ==

== ENCOUNTER → 2018-07-30 | Outpatient (CLI) | payer OTHER, MEDICARE | LOC: FIMAGING 09:15 ==